=== PATIENT | male | born 1985 | race Caucasian/White ===

== ENCOUNTER 2019-05-27 17:57 | Emergency (ER) | payer OTHER ==
[~2019-05-27 17:57] MED LIST: BACTRIM DS 8001 TA1 PO; CATAFLAM50 MG PO; CIPRO500 MG PO; ENDOCET 325 MG-1 TA5 PO; GENTAK3 MG/GM OP; HYDROCODONE BIT1 T11 PO; MOTRIN800 MG PO; NKHM
[2019-05-27 18:02] VITALS: BP 138/89
== END 2019-05-27 18:30 | disposition home or self-care (01) ==
LOC: ED 17:57
DX: H16.133 Photokeratitis, bilateral (principal); Z79.899 Other long term (current) drug therapy; W89.8XXA Exposure to other man-made visible and ultraviolet light, initial encounter; Y93.89 Activity, other specified; Y92.098 Other place in other non-institutional residence as the place of occurrence of the external cause; Y99.8 Other external cause status

== ENCOUNTER 2024-08-29 08:55 | Emergency (ER) | payer OTHER ==
[~2024-08-29] VITALS: Ht 177.8 cm; Wt 124.7 kg
[2024-08-29 09:02] VITALS: BP 141/91
== END 2024-08-29 09:28 | disposition home or self-care (01) ==
LOC: ED 08:55
DX: B99.8 Other infectious disease (principal); B97.11 Coxsackievirus as the cause of diseases classified elsewhere; J45.909 Unspecified asthma, uncomplicated; Z96.22 Myringotomy tube(s) status